=== PATIENT | female | born 1950 | race Caucasian/White ===

== ENCOUNTER → 2018-05-13 | Outpatient (CLI) | payer MEDICARE, OTHER ==
[2018-05-13 10:48] LABS: CHOLESTEROL 204 MG/DL (< 200); HDL CHOLESTEROL 65 MG/DL (40-60); TRIGLYCERIDES 109 MG/DL (<150); VLDL CHOLESTEROL 22 MG/DL (5-40)
[2018-05-13 12:44] LABS: BILIRUBIN,TOTAL 0.3 MG/DL (0.1-1.0); BUN/CREATININE RATIO 18; CALCIUM 9.4 MG/DL (8.5-10.1); CARBON DIOXIDE 22 MMOL/L (21-32); CHLORIDE 102 MMOL/L (98-107); CREATININE SERUM 0.79 MG/DL (0.60-1.30); GFR ESTIMATED > 60; GLUCOSE 95 MG/DL (70-105); POTASSIUM 4.3 MMOL/L (3.6-5.0); SODIUM 141 MMOL/L (135-145)
[2018-05-13 12:45] LABS: ALANINE AMINOTRANSFERASE 35 U/L (0-55); ALBUMIN 4.7 GM/DL (3.2-4.5); ALKALINE PHOSPHATASE 73 U/L (40-136); TOTAL PROTEIN 7.5 GM/DL (6.4-8.2)
== END ==
LOC: LAB FS 07:48
PROVIDERS: ATTEND Family Medicine
DX: E78.5 Hyperlipidemia, unspecified (principal); R73.9 Hyperglycemia, unspecified; R53.83 Other fatigue
CPT/HCPCS: 36415; 80053; 80061; 83036; 84443

== ENCOUNTER → 2019-11-03 | Outpatient (CLI) | payer MEDICARE ==
--- NOTE | 2019-11-03 12:49 | Diagnostic Imaging Report ---
EXAMINATION: Cervical spine INDICATION: Neck pain 4 views were obtained. There are no prior studies for comparison. The lateral view does show slight straightening of the cervical spine. This may be secondary to muscle spasm and/or positioning. There is narrowing of the disc spaces at C5-C6 and C6-C7 and there are small osteophytes along the ventral aspect of C5-C6 and C7. The other intervertebral spaces are fairly well-maintained. There is no fracture or acute bony abnormality evident. There is no sign of retropharyngeal edema. The lung apices are clear. IMPRESSION: 1. There is no evidence of acute bony abnormality. 2. There is degenerative disc and bone disease at C5-C6 and C6-C7. 3. If there is clinical concern regarding spinal stenosis or nerve root encroachment, then MRI would be recommended for further study. Dictated by: Dictated on workstation # [id number]
== END ==
LOC: RAD 09:57
PROVIDERS: ATTEND Family Medicine
DX: M50.322 Other cervical disc degeneration at C5-C6 level (principal); M50.323 Other cervical disc degeneration at C6-C7 level
CPT/HCPCS: 72040

== ENCOUNTER 2019-11-23 09:21 | Observation (INO) | payer MEDICARE ==
[2019-11-23] VITALS (8 sets, daily range): BP systolic 97–136; BP diastolic 63–81
[~2019-11-23] VITALS: Ht 162 cm; Wt 73.0 kg
[2019-11-23] MEDS ORDERED: NS IV 1000 ML 1,000 ML IV STA (09:27)
[2019-11-23 09:41] LABS: WHITE BLOOD COUNT 4.6 10^3/uL (4.3-11.0)
[2019-11-23 09:42] LABS: BASOPHILS % (AUTO) 1 % (0-10); EOSINOPHILS # (AUTO) 0.1 10^3/uL (0.0-0.3); EOSINOPHILS % (AUTO) 1 % (0-10); HEMATOCRIT 43 % (35-52); HEMOGLOBIN 14.4 G/DL (11.5-16.0); LYMPHOCYTES # (AUTO) 1.7 X 10^3 (1.0-4.0); LYMPHOCYTES % (AUTO) 37 % (12-44); MEAN CORPUSCULAR HEMOGLOBIN 30 PG (25-34); MEAN CORPUSCULAR HGB CONC 33 G/DL (32-36); MEAN CORPUSCULAR VOLUME 90 FL (80-99); MEAN PLATELET VOLUME 9.2 FL (7.4-10.4); MONOCYTES # (AUTO) 0.4 X 10^3 (0.0-1.0); MONOCYTES % (AUTO) 10 % (0-12); NEUTROPHILS # (AUTO) 2.3 X 10^3 (1.8-7.8); NEUTROPHILS % (AUTO) 51 % (42-75); PLATELET COUNT 268 10^3/uL (130-400)
[2019-11-23] MEDS ORDERED: ASPIRIN 81 MG CHEW (CHILDREN'S ASA) PO ONE (09:45)
--- NOTE | 2019-11-23 09:55 | Diagnostic Imaging Report ---
INDICATION: Chest pain. Single AP view of the chest is obtained. COMPARISON: No previous study is available for comparison at this time. FINDINGS: Heart size and pulmonary vasculature are within normal limits, and the lungs are clear, bilaterally. There is mild left convexity curvature of the thoracic spine. IMPRESSION: Unremarkable chest. Dictated by: Dictated on workstation # [id number]
[2019-11-23 10:01] LABS: INR 0.9 (0.8-1.4); PROTHROMBIN TIME PATIENT 12.6 SEC (12.2-14.7)
--- NOTE | 2019-11-23 10:05 | ED Chest Pain ---
General Chief Complaint: Chest Pain Stated Complaint: COUGH; SOB; CHEST PAIN Nursing Triage Note: STARTED ON THURSDAY, LEFT SIDE RADIATING TO RIGHT SIDE. NECK STIFFNESS. PT REPORTS IT FEELS LIKE A PRESSURE. Nursing Sepsis Screen: No Definite Risk Source: patient History of Present Illness Date Seen by Provider: Nov 23, 2019 Time Seen by Provider: 09:27 Initial Comments 69-year-old female presenting with complaints of intermittent left-sided chest pain since Thursday. She states that she's had some discomfort in her left jaw and left hand as well as her left foot. She has had a mild cough. She felt like the pain was worse on Thursday. However this morning she woke up with recurrent left- sided pain radiating to the right side of her back and chest. She had called her doctor in [place] and was told to come to the emergency department. She denies any nausea or vomiting. She has no sweating or shortness of breath. The pain started when she woke up this morning and is been mostly there all morning. Nothing seems to make it better or worse. She had something similar several months ago and was diagnosed with pneumonia but had side effects from the antibiotics. She states that she does have allergies and takes medicine for that. Allergies and Home Medications Allergies Coded Allergies: No Known Drug Allergies (Unverified , 11/23/19) Home Medications Calcium Carbonate 1 Gm Powder, 600 MG PO 1600, (Reported) TAKES WITH WATER AFTER HER SNACK Diphenhydramine HCl 25 Mg Capsule, 50 MG PO HS PRN for SLEEP, (Reported) TAKES 2 (25MG) CAPSULES Fexofenadine HCl 180 Mg Tablet, 180 MG PO DAILY, (Reported) Fluticasone Propionate 9.9 Ml [place].susp, 1 SPRAY NS BID PRN for CONGESTION, (Reported) 1 SPRAY EACH NARE DAILY Lactobacillus Rhamnosus GG 1 Each Capsule, 1 EACH PO DAILY, (Reported) Multivitamin 1 Each Tablet, 2 EACH PO 1600, (Reported) Naphazoline HCl/Pheniramine 15 Ml Drops, 1 DROP OU DAILY PRN for ALLERGIES, (Reported) [place]-3/Dha/Epa/Fish Oil 1 Each Capsule, 1 EACH PO 1600, (Reported) Omeprazole 20 Mg Capsule.dr, 20 MG PO DAILY, (Reported) Patient Home Medication List Home Medication List Reviewed: Yes Review of Systems Review of Systems Constitutional: No chills, No dizziness, No fever EENTM: No Symptoms Reported Respiratory: Cough (mild) Cardiovascular: See HPI Gastrointestinal: Denies Nausea, Denies Vomiting Genitourinary: No Symptoms Reported Musculoskeletal: no symptoms reported Skin: no symptoms reported Psychiatric/Neurological: No Symptoms Reported Endocrine: No Symptoms Reported Past Jhlsfov-Nrvyqb-Rktjhj Hx Past Med/Social Hx: Reviewed Nursing Past Med/Soc Hx Patient Social History Alcohol Use: Denies Use Recreational Drug Use: No Smoking Status: Never a Smoker 2nd Hand Smoke Exposure: Yes Recent Foreign Travel: No Contact w/Someone Who Travel: No Recent Infectious Disease Expo: No Recent Hopitalizations: No Physical Abuse: No Sexual Abuse: No Mistreated: No Fear: No Seasonal Allergies Seasonal Allergies: Yes Past Medical History Surgeries: Yes (BENIGN BREAST, CERVICAL SURGERY) Gallbladder Respiratory: No Cardiac: No Neurological: No Genitourinary: No Gastrointestinal: No Musculoskeletal: No Endocrine: No HEENT: No Cancer: No Psychosocial: No Integumentary: No Blood Disorders: No Physical Exam Vital Signs Vital Signs - First Documented 11/23/19 09:22 Temp 37.0 Pulse 71 Resp 18 B/P (MAP) 161/64 (96) Pulse Ox 98 O2 Delivery Room Air Capillary Refill : Less Than 3 Seconds Height, Weight, BMI Height: '" Weight: lbs. oz. kg; 28.00 BMI Method: General Appearance: No Apparent Distress, WD/WN HEENT: PERRL/EOMI, Pharynx Normal Neck: Full Range of Motion, Normal Inspection, Non Tender, Supple Respiratory: Chest Non Tender, Lungs Clear, Normal Breath Sounds, No Accessory Muscle Use, No Respiratory Distress Cardiovascular: Regular Rate, Rhythm, Normal Peripheral Pulses Gastrointestinal: Normal Bowel Sounds, Non Tender, Soft Extremity: Normal Capillary Refill, Normal Range of Motion, Non Tender, No Pedal Edema Neurologic/Psychiatric: Alert, Oriented x3, No Motor/Sensory Deficits Skin: Normal Color, Warm/Dry Progress/Results/Core Measures Results/Orders Lab Results Laboratory Tests Test 11/23/19 09:33 Range/Units White Blood Count 4.6 4.3-11.0 10^3/uL Red Blood Count 4.83 4.35-5.85 10^6/uL Hemoglobin 14.4 11.5-16.0 G/DL Hematocrit 43 35-52 % Mean Corpuscular Volume 90 80-99 FL Mean Corpuscular Hemoglobin 30 25-34 PG Mean Corpuscular Hemoglobin Concent 33 32-36 G/DL Red Cell Distribution Width 12.6 10.0-14.5 % Platelet Count 268 130-400 10^3/uL Mean Platelet Volume 9.2 7.4-10.4 FL Neutrophils (%) (Auto) 51 42-75 % Lymphocytes (%) (Auto) 37 12-44 % Monocytes (%) (Auto) 10 0-12 % Eosinophils (%) (Auto) 1 0-10 % Basophils (%) (Auto) 1 0-10 % Neutrophils # (Auto) 2.3 1.8-7.8 X 10^3 Lymphocytes # (Auto) 1.7 1.0-4.0 X 10^3 Monocytes # (Auto) 0.4 0.0-1.0 X 10^3 Eosinophils # (Auto) 0.1 0.0-0.3 10^3/uL Basophils # (Auto) 0.0 0.0-0.1 10^3/uL Prothrombin Time 12.6 12.2-14.7 SEC INR Comment 0.9 0.8-1.4 Activated Partial Thromboplast Time 25 24-35 SEC Sodium Level 140 135-145 MMOL/L Potassium Level 4.0 3.6-5.0 MMOL/L Chloride Level 103 98-107 MMOL/L Carbon Dioxide Level 24 21-32 MMOL/L Anion Gap 13 5-14 MMOL/L Blood Urea Nitrogen 13 7-18 MG/DL Creatinine 0.86 0.60-1.30 MG/DL Estimat Glomerular Filtration Rate > 60 BUN/Creatinine Ratio 15 Glucose Level 111 H 70-105 MG/DL Calcium Level 9.4 8.5-10.1 MG/DL Corrected Calcium 9.1 8.5-10.1 MG/DL Magnesium Level 2.1 1.6-2.4 MG/DL Total Bilirubin 0.3 0.1-1.0 MG/DL Aspartate Amino Transf (AST/SGOT) 21 5-34 U/L Alanine Aminotransferase (ALT/SGPT) 18 0-55 U/L Alkaline Phosphatase 76 40-136 U/L Troponin I < 0.30 <0.30 NG/ML Pro-B-Type Natriuretic Peptide 135.5 H <75.0 PG/ML Total Protein 7.2 6.4-8.2 GM/DL Albumin 4.4 3.2-4.5 GM/DL Lipase 22 8-78 U/L My Orders Orders - MONET GUERIN MD Comprehensive Metabolic Panel (11/23/19 09:27) Ed Iv/Invasive Line Start (11/23/19 09:27) Cbc With Automated Diff (11/23/19 09:27) Protime With Inr (11/23/19 09:27) Partial Thromboplastin Time (11/23/19 09:27) Ns Iv 1000 Ml (Sodium Chloride 0.9%) (11/23/19 09:27) Magnesium (11/23/19 09:40) Chest 1 View Ap/Pa Only (11/23/19 09:40) Ekg Tracing (11/23/19 09:40) O2 (11/23/19 09:40) Monitor-Rhythm Ecg Trace Only (11/23/19 09:40) Aspirin Chewable Tablet (Baby Aspirin Ch (11/23/19 09:45) Lipase (11/23/19 09:40) Troponin I Fs (11/23/19 09:40) Probnp Fs (11/23/19 09:40) Nitroglycerin Ointment (Nitrobid Ointme (11/23/19 11:15) Medications Given in ED Current Medications Medications Dose Ordered Sig/Rima Route Start Time Stop Time Status Last Admin Dose Admin Aspirin 324 mg ONCE ONCE PO 11/23/19 09:45 11/23/19 09:46 DC 11/23/19 09:57 324 MG Nitroglycerin 0.5 inch ONCE ONCE TOP 11/23/19 11:15 11/23/19 11:16 DC 11/23/19 11:23 0.5 INCH Vital Signs/I&O 11/23/19 11/23/19 09:22 12:00 Temp 37.0 36.0 Pulse 71 77 Resp 18 16 B/P (MAP) 161/64 (96) 121/65 Pulse Ox 98 96 O2 Delivery Room Air Room Air Blood Pressure Mean: 96 Progress Progress Note #1: Progress Note Check labs as well as electrocardiogram and chest x-ray. Give 324 mg of aspirin while waiting on testing to come back. Progress Note #2: Progress Note Labs were negative for acute STEMI. She did have mild elevation of her BNP. Her chest x-ray was clear. Patient reported intermittent aching in her left neck and jaw. She also was having some pain in her back. Will add on nitroglycerin paste to see if that might help with her symptoms. Call placed to Dr. BEE her primary care provider to see if she would want to manage this as an outpatient or have her admitted for stress test and cardiology consult. When discussed with Dr. BEE she agreed to admit the patient and consult cardiology. Initial ECG Impression Date: Nov 23, 2019 Initial ECG Impression Time: 09:25 Initial ECG Rate: 64 Initial ECG Rhythm: Normal Sinus Initial ECG Comparisson: No Previous ECG Available Comment Normal sinus rhythm with heart rate 64 bpm. ME interval 190 ms. There is a left axis deviation. QT interval 397 ms with a QTc interval 410 ms. There is no [address] elevation. There is no prior tracing available for comparison. Diagnostic Imaging Diagonstic Imaging: Xray Plain Films/CT/US/NM/MRI: chest Comments NAME: MAYRA ALBRECHT [facility] REC#: [id number] PT STATUS: REG ER : 1950 PHYSICIAN: MONET GUERIN MD ADMIT DATE: 11/23/19/ER FS Draft Date of Exam:11/23/19 CHEST 1 VIEW AP/PA ONLY INDICATION: Chest pain. Single AP view of the chest is obtained. COMPARISON: No previous study is available for comparison at this time. FINDINGS: Heart size and pulmonary vasculature are within normal limits, and the lungs are clear, bilaterally. There is mild left convexity curvature of the thoracic spine. IMPRESSION: Unremarkable chest. Dictated on workstation # [id number] Dict: 11/23/19 0948 Trans: 11/23/19 0955 [id number] Interpreted by: CHASITY WISEMAN MD Electronically signed by: Departure Communication (Admissions) Time/Spoke to Admitting Phy: 10:44 d/w Dr. Bee and she agreed to admit for cardiac rule out. Impression Primary Impression: Chest pain Qualified Codes: R07.9 - Chest pain, unspecified Disposition: ADMITTED INPATIENT Condition: Stable Admissions Decision to Admit Reason: Admit from ER (General) Decision to Admit/Date: Nov 23, 2019 Time/Decision to Admit Time: 10:44 Departure-Patient Inst. Referrals: CRISTINA BEE DO (PCP/Family) Primary Care Physician MONET GUERIN MD Nov 23, 2019 10:05
[2019-11-23 10:24] LABS: ALANINE AMINOTRANSFERASE 18 U/L (0-55); ALBUMIN 4.4 GM/DL (3.2-4.5); ALKALINE PHOSPHATASE 76 U/L (40-136); BILIRUBIN,TOTAL 0.3 MG/DL (0.1-1.0); BUN/CREATININE RATIO 15; CALCIUM 9.4 MG/DL (8.5-10.1); CARBON DIOXIDE 24 MMOL/L (21-32); CHLORIDE 103 MMOL/L (98-107); CREATININE SERUM 0.86 MG/DL (0.60-1.30); GFR ESTIMATED > 60; GLUCOSE 111 MG/DL (70-105); SODIUM 140 MMOL/L (135-145); TOTAL PROTEIN 7.2 GM/DL (6.4-8.2)
[2019-11-23 10:25] LABS: MAGNESIUM 2.1 MG/DL (1.6-2.4)
[2019-11-23] MEDS ORDERED: NITROGLYCERIN 2% OINT 1 GM UNIT DOSE PACKET TOP ONE (11:15)
--- NOTE | 2019-11-23 13:30 | NUR ---
MAYRA ALBRECHT admitted to room 511-1, with an admitting diagnosis of CHEST PAIN, on 11/23/19 from DIRECT ADMIT via STRETCHER, accompanied by EMS STAFF. MAYRA ALBRECHT introduced to surroundings, call light, bed controls, phone, TV, temperature control, lights, meal times, smoking policy, visitor policy, side rail policy, bathrooms and showers. Patient Rights given to patient in the handbook. MAYRA ALBRECHT verbalizes understanding that [facility] is not responsible for the loss or damage to any personal effects or valuables that are kept in the patients possession during their hospitalization.
[2019-11-23] MEDS ORDERED: NS IV 1000 ML 1,000 ML ONE (13:34)
[2019-11-23] MEDS ORDERED: morphine INJ 4 MG/ML 1 ML (VIAL/SYRINGE) IV PRN (14:00)
[2019-11-23] MEDS ORDERED: ONDANSETRON 4 MG/2 ML (SDV) Z0FRAN IVP PRN (14:00)
[2019-11-23] MEDS: NS IV 1000 ML 1,000 ML IV SCH (14:07)
[2019-11-23] MEDS ORDERED: LACT1CAP39 PO (15:42)
[2019-11-23] MEDS ORDERED: OMEG-33 PO (15:42)
[2019-11-23] MEDS ORDERED: FEXO180T84 PO (15:42)
[2019-11-23] MEDS ORDERED: OMEP20CA18 PO (15:42)
[2019-11-23] MEDS ORDERED: MULT-1136 PO (15:42)
[2019-11-23] MEDS ORDERED: CALC1POW PO (15:42)
[2019-11-23] MEDS ORDERED: NAPH15DR14 OU (15:42)
[2019-11-23] MEDS ORDERED: FLUT15.812 NSEACH (15:42)
[2019-11-23] MEDS ORDERED: DIPH25CA79 PO (15:42)
[2019-11-23] MEDS ORDERED: FLUT9.9S NS (15:42)
--- NOTE | 2019-11-23 15:45 | NUR ---
I SPOKE WITH THE PATIENT AND WENT THROUGH THE EXTERNAL MED HISTORY TO COMPLETE THIS MED REC. OTC: FLONASE WARD PROBIOTIC CALCIUM CARBONATE FISH OIL BENADRYL ALLERGY RELIEF EYE DROPS
--- NOTE | 2019-11-23 16:41 | NUR ---
DR. COSBY AT PT BEDSIDE FOR CONSULT ASSESSMENT.
[2019-11-23] MEDS ORDERED: ENOXAPARIN 40 MG/0.4 ML (LOVENOX) SYR SC SCH (16:45)
--- NOTE | 2019-11-23 17:09 | Consultation-Cardiology ---
HPI-Cardiology Cardiology Consultation Date of Consultation 11/23/19 Date of Admission Time Seen by Provider: 17:07 Indication: chest pain HPI 69-year-old lady with history of degenerative disc disease in her neck and neck pain. Has been having mild congestion in her nose and throat, complaining of reflux disease. Reported for the past 3 days episode of chest pain described it as dull ache in the left upper side of her chest, back pain between her shoulders. No shortness of breath. No syncope or near syncopal episodes. No claudications. Has been compliant with her medications otherwise. Home Medications & Allergies Allergies: Coded Allergies: cantaloupe (Unverified Allergy, Intermediate, MOUTH TINGLING, 11/23/19) pineapple (Unverified Allergy, Intermediate, TINGLING MOUTH, 11/23/19) strawberry (Unverified Allergy, Intermediate, TINGLING MOUTH, 11/23/19) watermelon (Unverified Allergy, Intermediate, TINGLING MOUTH, 11/23/19) cefdinir (Unverified Allergy, Mild, SEVERE CHEST PAIN, 11/23/19) latex (Unverified Allergy, Unknown, 11/23/19) PT ALLERGIC TO EXOTIC FRUITS AND UNSURE IF SHE IS ALLERGIC TO LATEX oseltamivir (Unverified Allergy, Unknown, SEVERE CHEST PAIN, 11/23/19) Home Medication List Reviewed: Yes QVF-Lpjccp-Ssunri Hx Patient Social History Marital Status: Employed/Student: employed Alcohol Use: Denies Use Recreational Drug Use: No Smoking Status: Never a Smoker 2nd Hand Smoke Exposure: Yes Recent Foreign Travel: No Recent Infectious Disease Expo: No Recent Hopitalizations: No Past Medical History Discussed below Family Medical History Family History: Asthma 19 FATHER Basal cell carcinoma 19 FATHER G8 SISTER FH: COPD (chronic obstructive pulmonary disease) 19 FATHER Glaucoma 19 FATHER Review of Systems-General Review of Systems Constitutional: see HPI; No chills, No dizziness, No fever EENTM: see HPI, nose congestion Respiratory: see HPI; No cough, No dyspnea on exertion, No hemoptysis, No orthopnea, No phlegm, No short of breath, No stridor, No wheezing, No other Cardiovascular: see HPI, chest pain; No edema, No Hx of Intervention, No palpitations, No syncope, No vascular heart diseas, No other Gastrointestinal: no symptoms reported, see HPI Genitourinary: no symptoms reported, see HPI Musculoskeletal: see HPI, back pain Skin: no symptoms reported, see HPI Psychiatric/Neurological: No Symptoms Reported, See HPI Reviewed Test Results Reviewed Test Results Lab Laboratory Tests Test 11/23/19 09:33 11/23/19 13:56 Range/Units White Blood Count 4.6 4.3-11.0 10^3/uL Red Blood Count 4.83 4.35-5.85 10^6/uL Hemoglobin 14.4 11.5-16.0 G/DL Hematocrit 43 35-52 % Mean Corpuscular Volume 90 80-99 FL Mean Corpuscular Hemoglobin 30 25-34 PG Mean Corpuscular Hemoglobin Concent 33 32-36 G/DL Red Cell Distribution Width 12.6 10.0-14.5 % Platelet Count 268 130-400 10^3/uL Mean Platelet Volume 9.2 7.4-10.4 FL Neutrophils (%) (Auto) 51 42-75 % Lymphocytes (%) (Auto) 37 12-44 % Monocytes (%) (Auto) 10 0-12 % Eosinophils (%) (Auto) 1 0-10 % Basophils (%) (Auto) 1 0-10 % Neutrophils # (Auto) 2.3 1.8-7.8 X 10^3 Lymphocytes # (Auto) 1.7 1.0-4.0 X 10^3 Monocytes # (Auto) 0.4 0.0-1.0 X 10^3 Eosinophils # (Auto) 0.1 0.0-0.3 10^3/uL Basophils # (Auto) 0.0 0.0-0.1 10^3/uL Prothrombin Time 12.6 12.2-14.7 SEC INR Comment 0.9 0.8-1.4 Activated Partial Thromboplast Time 25 24-35 SEC Sodium Level 140 135-145 MMOL/L Potassium Level 4.0 3.6-5.0 MMOL/L Chloride Level 103 98-107 MMOL/L Carbon Dioxide Level 24 21-32 MMOL/L Anion Gap 13 5-14 MMOL/L Blood Urea Nitrogen 13 7-18 MG/DL Creatinine 0.86 0.60-1.30 MG/DL Estimat Glomerular Filtration Rate > 60 BUN/Creatinine Ratio 15 Glucose Level 111 H 70-105 MG/DL Calcium Level 9.4 8.5-10.1 MG/DL Corrected Calcium 9.1 8.5-10.1 MG/DL Magnesium Level 2.1 1.6-2.4 MG/DL Total Bilirubin 0.3 0.1-1.0 MG/DL Aspartate Amino Transf (AST/SGOT) 21 5-34 U/L Alanine Aminotransferase (ALT/SGPT) 18 0-55 U/L Alkaline Phosphatase 76 40-136 U/L Troponin I < 0.30 < 0.028 <0.028 NG/ML Pro-B-Type Natriuretic Peptide 135.5 H <75.0 PG/ML Total Protein 7.2 6.4-8.2 GM/DL Albumin 4.4 3.2-4.5 GM/DL Lipase 22 8-78 U/L Physical Exam Physical Exam Vital Signs Vital Signs - First Documented 11/23/19 09:22 Temp 37.0 Pulse 71 Resp 18 B/P (MAP) 161/64 (96) Pulse Ox 98 O2 Delivery Room Air Capillary Refill : Less Than 3 Seconds Height, Weight, BMI Height: '" Weight: lbs. oz. kg; 27.32 BMI Method: General Appearance: No Apparent Distress, WD/WN Eyes: Bilateral Eye Normal Inspection, Bilateral Eye PERRL, Bilateral Eye EOMI HEENT: PERRL/EOMI, Pharynx Normal Neck: Full Range of Motion, Normal Inspection, Non Tender, Supple Respiratory: Chest Non Tender, Lungs Clear, Normal Breath Sounds, No Accessory Muscle Use, No Respiratory Distress Cardiovascular: Regular Rate, Rhythm, Normal Peripheral Pulses Gastrointestinal: Normal Bowel Sounds, Non Tender, Soft Back: Normal Inspection, No CVA Tenderness, No Vertebral Tenderness Extremity: Normal Capillary Refill, Normal Range of Motion, Non Tender, No Pedal Edema Neurologic/Psychiatric: Alert, Oriented x3, No Motor/Sensory Deficits Skin: Normal Color, Warm/Dry Lymphatic: No Adenopathy A/P-Cardiology Assessment/Plan Chest pain nonspecific etiology, atypical in presentation, no acute EKG changes, cardiac enzymes are negative. Discussed with the patient the management plan recommended monitoring overnight, repeating troponin in the morning and planning to proceed with stress test in the morning. Neck pain, history of degenerative disc disease in her C-spine. Having bilateral shoulder pain. Nasal congestion, reporting improvement Gastroesophageal reflux disease, started on Protonix Clinical Quality Measures AMI/AHF: ASA po Prior to arrival: No DVT/VTE Risk/Contraindication: Risk Factor Score Per Nursin RFS Level Per Nursing on Admit: 2=Moderate BIBIANA COSBY MD Nov 23, 2019 17:09
[2019-11-23] MEDS ORDERED: REGADENOSON 0.4 MG/5 ML SYR (LEXISCAN) IV ONE (17:15)
[2019-11-23] MEDS ORDERED: PANTOPRAZOLE 40 MG (PROTONIX) TAB PO ONE (17:42)
[2019-11-23] MEDS: PANTOPRAZOLE 40 MG (PROTONIX) TAB PO SCH (17:46)
--- NOTE | 2019-11-23 20:07 | History & Physical ---
History of Present Illness History of Present Illness Reason for visit/HPI This is a 69 year old female who presented to the emergency room at [facility] with substernal chest pain radiating through to her back as well as to her left neck and jaw. Her EKG and cardiac enzymes were negative but do to her ongoing chest pain it was felt she should be transferred to [facility] for cardiac workup and rule out. She has a known history of reflux an d was having burning up into her esophagus. She also has cervical and thoracic degenerative disc disease and has been having back and right rib pain recently. Her pain is currently resolved after a nitropatch was placed. Date of Admission Nov 23, 2019 at 13:22 Date Seen by a Provider: Nov 23, 2019 Time Seen by a Provider: 20:05 I consulted on this patient on 11/23/19 20:01 Attending Physician Cristina Bee DO Admitting Physician Cristina Bee DO Consult Allergies and Home Medications Allergies Coded Allergies: cantaloupe (Unverified Allergy, Intermediate, MOUTH TINGLING, 11/23/19) pineapple (Unverified Allergy, Intermediate, TINGLING MOUTH, 11/23/19) strawberry (Unverified Allergy, Intermediate, TINGLING MOUTH, 11/23/19) watermelon (Unverified Allergy, Intermediate, TINGLING MOUTH, 11/23/19) cefdinir (Unverified Allergy, Mild, SEVERE CHEST PAIN, 11/23/19) latex (Unverified Allergy, Unknown, 11/23/19) PT ALLERGIC TO EXOTIC FRUITS AND UNSURE IF SHE IS ALLERGIC TO LATEX oseltamivir (Unverified Allergy, Unknown, SEVERE CHEST PAIN, 11/23/19) Home Medications Calcium Carbonate 1 Gm Powder, 600 MG PO 1600, (Reported) TAKES WITH WATER AFTER HER SNACK Diphenhydramine HCl 25 Mg Capsule, 50 MG PO HS PRN for SLEEP, (Reported) TAKES 2 (25MG) CAPSULES Fexofenadine HCl 180 Mg Tablet, 180 MG PO DAILY, (Reported) Fluticasone Propionate 9.9 Ml [place].susp, 1 SPRAY NS BID PRN for CONGESTION, (Reported) 1 SPRAY EACH NARE DAILY Lactobacillus Rhamnosus GG 1 Each Capsule, 1 EACH PO DAILY, (Reported) Multivitamin 1 Each Tablet, 2 EACH PO 1600, (Reported) Naphazoline HCl/Pheniramine 15 Ml Drops, 1 DROP OU DAILY PRN for ALLERGIES, (Reported) Lanse-3/Dha/Epa/Fish Oil 1 Each Capsule, 1 EACH PO 1600, (Reported) Omeprazole 20 Mg Capsule.dr, 20 MG PO DAILY, (Reported) Patient Home Medication List Home Medication List Reviewed: Yes Past Muuwhat-Gxnebj-Ihpqhm Hx Past Med/Social Hx: Reviewed Nursing Past Med/Soc Hx Patient Social History Marrital Status: Employed/Student: employed Alcohol Use: Denies Use Recreational Drug Use: No Smoking Status: Never a Smoker 2nd Hand Smoke Exposure: Yes Recent Foreign Travel: No Contact w/other who traveled: No Recent Hopitalizations: No Recent Infectious Disease Expo: No Seasonal Allergies Seasonal Allergies: Yes Past Medical History Surgeries: Gallbladder History of Blood Disorders: No Family History Asthma 19 FATHER Basal cell carcinoma 19 FATHER G8 SISTER FH: COPD (chronic obstructive pulmonary disease) 19 FATHER Glaucoma 19 FATHER Review of Systems Constitutional: weakness EENTM: nose congestion Respiratory: No no symptoms reported, No see HPI, No cough, No dyspnea on exertion, No hemoptysis, No orthopnea, No phlegm, No short of breath, No stridor, No wheezing, No other Cardiovascular: chest pain Gastrointestinal: heartburn Genitourinary: No no symptoms reported, No see HPI, No decreased output, No discharge, No dysuria, No frequency, No hematuria, No hesitancy, No incontinence, No nocturia, No pain, No other Musculoskeletal: back pain Skin: No no symptoms reported, No see HPI, No change in color, No change in hair/nails, No dryness, No hx of skin cancer, No lesions, No lumps, No pruritus, No rash, No other Psychiatric/Neurological: Denies No Symptoms Reported, Denies See HPI, Denies Anxiety, Denies Depressed, Denies Emotional Problems, Denies Headache, Denies Numbness, Denies Paresthesia, Denies Pre-Existing Deficit, Denies Seizure, Denies Tingling, Denies Tremors, Denies Weakness, Denies Other Physical Exam Vital Signs Vital Signs - First Documented 11/23/19 09:22 Temp 37.0 Pulse 71 Resp 18 B/P (MAP) 161/64 (96) Pulse Ox 98 O2 Delivery Room Air Capillary Refill : Less Than 3 Seconds Height, Weight, BMI Height: '" Weight: lbs. oz. kg; 27.32 BMI Method: General Appearance: No Apparent Distress HEENT: Normal ENT Inspection Neck: Supple Respiratory: Lungs Clear Cardiovascular: Regular Rate, Rhythm Gastrointestinal: Normal Bowel Sounds, Non Tender, Soft Rectal: Deferred Back: No CVA Tenderness, Other (costochondral tenderness but not the same pain she has been experiencing) Extremity: Non Tender, No Calf Tenderness, No Pedal Edema Neurologic/Psychiatric: Alert, Oriented x3 Skin: Warm/Dry Comments Laboratory Tests 11/23/19 09:33: White Blood Count 4.6, Red Blood Count 4.83, Hemoglobin 14.4, Hematocrit 43, Mean Corpuscular Volume 90, Mean Corpuscular Hemoglobin 30, Mean Corpuscular Hemoglobin Concent 33, Red Cell Distribution Width 12.6, Platelet Count 268, Mean Platelet Volume 9.2, Neutrophils (%) (Auto) 51, Lymphocytes (%) (Auto) 37, Monocytes (%) (Auto) 10, Eosinophils (%) (Auto) 1, Basophils (%) (Auto) 1, Neutrophils # (Auto) 2.3, Lymphocytes # (Auto) 1.7, Monocytes # (Auto) 0.4, Eosinophils # (Auto) 0.1, Basophils # (Auto) 0.0, Prothrombin Time 12.6, INR Comment 0.9, Activated Partial Thromboplast Time 25, Sodium Level 140, Potassium Level 4.0, Chloride Level 103, Carbon Dioxide Level 24, Anion Gap 13, Blood Urea Nitrogen 13, Creatinine 0.86, Estimat Glomerular Filtration Rate > 60, BUN/Creatinine Ratio 15, Glucose Level 111H, Calcium Level 9.4, Corrected Calcium 9.1, Magnesium Level 2.1, Total Bilirubin 0.3, Aspartate Amino Transf (AST/SGOT) 21, Alanine Aminotransferase (ALT/SGPT) 18, Alkaline Phosphatase 76, Troponin I < 0.30, Pro-B-Type Natriuretic Peptide 135.5H, Total Protein 7.2, Albumin 4.4, Lipase 22 11/23/19 13:56: Troponin I < 0.028 Assessment/Plan Assessment and Plan 1. Chest Pain--uncertain etiology, monitor on telemetry, repeat cardiac enzymes, check 2-D ECHO, stress test tomorrow 2. History of GERD--started on protonix 3. Cervical/Thoracic back pain--discussed PT as outpatient\\ 4. Allergic Rhinitis--resume home yisel Admission Diagnosis Admission Status: Observation Clinical Quality Measures AMI/AHF: ASA po Prior to arrival: No DVT/VTE Risk/Contraindication: Risk Factor Score Per Nursin RFS Level Per Nursing on Admit: 2=Moderate CRISTINA BEE DO Nov 23, 2019 20:07
[2019-11-23] MEDS ORDERED: FLUTICASONE NASAL SPRAY (FLONASE) 16 GM BTL NS PRN (21:00)
[2019-11-24] MEDS: NS IV 1000 ML 1,000 ML IV SCH (03:18)
[2019-11-24 04:31] VITALS: BP 133/72
[2019-11-24] MEDS ORDERED: CATHETER FLUSH 10 ML SYR IV PRN (07:00)
--- NOTE | 2019-11-24 07:06 | NUR ---
Nuclear med to take pt down for procedure at this time.
[2019-11-24] MEDS ORDERED: REGADENOSON 0.4 MG/5 ML SYR (LEXISCAN) IV ONE (07:46)
--- NOTE | 2019-11-24 08:30 | Cardiology Progress Note ---
Subjective Date Seen by Provider: Nov 24, 2019 Time Seen by Provider: 08:30 Subjective/Events-last exam Patient is laying down in bed, had another episode of chest pain early this morning, currently she is pain-free Review of Systems General: No Chills, No Night Sweats, No Fatigue, No Malaise, No Appetite, No Other HEENT: No Head Aches, No Visual Changes, No Eye Pain, No Ear Pain, No Dysphasia, No Sinus Congestion, No Post Nasal Drip, No Sore Throat, No Other Pulmonary: No Dyspnea, No Cough, No Pleuritic Chest Pain, No Other Cardiovascular: Chest Pain; No: Palpitations, Orthopnea, Paroxysmal Noc. Dyspnea, Edema, Lt Headedness, Other Objective-Cardiology Exam Last Set of Vital Signs Vital Signs 11/24/19 04:31 Temp 36.6 Pulse 55 Resp 19 B/P (MAP) 133/72 (92) Pulse Ox 97 O2 Delivery Room Air Capillary Refill : Less Than 3 Seconds I&O Intake and Output 11/23/19 23:59 Intake Total 1575 ml Output Total 1450 ml Balance 125 ml Intake Oral 1575 ml Output Urine Total 1450 ml Daily Weight Change No No General: Alert, Oriented X3, Cooperative HEENT: Atraumatic, PERRLA Neck: Supple, No JVD, No Thyromegaly Lungs: Clear to Auscultation, Normal Air Movement Heart: Regular Rate, Normal S1, Normal S2, No Murmurs Abdomen: Normal Bowel Sounds, Soft, No Tenderness, No Hepatosplenomegaly, No Masses Extremities: No Clubbing, No Cyanosis, No Edema, Normal Pulses, No Tenderness/Swelling Skin: No Rashes, No Breakdown, No Significant Lesion Neuro: Normal Gait, Normal Speech, Strength at 5/5 X4 Ext, Normal Tone, Sensation Intact Psych/Mental Status: Mental Status NL, Mood NL Results Lab Laboratory Tests 11/23/19 09:33 A/P-Cardiology Assessment/Plan Chest pain nonspecific etiology, atypical in presentation, no acute EKG changes, cardiac enzymes are negative. Planning to proceed with stress test this morning Neck pain, history of degenerative disc disease in her C-spine. Having bilateral shoulder pain. Nasal congestion, reporting improvement Gastroesophageal reflux disease, started on Protonix Clinical Quality Measures AMI/AHF: ASA po Prior to arrival: No DVT/VTE Risk/Contraindication: Risk Factor Score Per Nursin RFS Level Per Nursing on Admit: 2=Moderate BIBIANA COSBY MD Nov 24, 2019 8:30 am
[2019-11-24] MEDS: PANTOPRAZOLE 40 MG (PROTONIX) TAB PO SCH (09:00)
[2019-11-24] MEDS ORDERED: LACTOBACILLUS ACIDOPHILUS (PROBIOTIC) CAPSULE PO SCH (09:00)
[2019-11-24] MEDS ORDERED: ASPIRIN E.C. 81 MG (ECOTRIN) TAB PO SCH (09:00)
[2019-11-24] MEDS ORDERED: LORATADINE (CLARITIN) 10 MG TAB PO SCH (09:00)
--- NOTE | 2019-11-24 10:25 | Cardiology Stress Test Report ---
Stress Test Report Date of Procedure/Referring: Date of Procedure: Nov 24, 2019 PCP Mi Bee DO Admitting Physician Mi Bee DO Indications: Chest pain Baseline Blood Pressure: Blood Pressure Systolic: 133 Blood Pressure Diastolic: 72 Baseline Vitals Vital Signs Date Time Temp Pulse Resp B/P (MAP) Pulse Ox O2 Delivery O2 Flow Rate FiO2 11/23/19 09:22 37.0 71 18 161/64 (96) 98 Room Air Baseline EKG: Baseline EKG: normal sinus rhythm Summary After explaining the procedure to the patient, she signed a consent and then brought to the stress nuclear laboratory. Patient received 0.4 mg Lexiscan for stress test, ECG, heart rate and blood pressure were monitored continuously. Resting and stress dose of radio tracer were injected, imaging was acquired and reviewed in short axis, horizontal long axis and vertical long axis views. TID: 1.02 SSS: 1 SDS: 1 EF: 70 1. Patient tolerated Lexiscan well 2. No ischemia or infarction on SPECT images 3. Normal LV size, EF 70 percent BIBIANA COSBY MD Nov 24, 2019 10:25
[2019-11-24 11:52] VITALS: BP 130/81
--- NOTE | 2019-11-24 18:05 | Discharge Summary ---
Diagnosis/Chief Complaint Date of Admission Nov 23, 2019 at 13:22 Date of Discharge Nov 24, 2019 at 13:42 Discharge Date: Nov 24, 2019 Discharge Diagnosis 1. Chest Pain, noncardiac in etiology--likely esophageal spasm/GERD 2. Thoracic Back Pain 3. Allergic Rhinitis Reason Hospital Visit This is a 69 year old female who presented to the emergency room at [facility] with substernal chest pain radiating through to her back as well as to her left neck and jaw. Her EKG and cardiac enzymes were negative but do to her ongoing chest pain it was felt she should be transferred to [facility] for cardiac workup and rule out. She has a known history of reflux and was having burning up into her esophagus. She also has cervical and thoracic degenerative disc disease and has been having back and right rib pain recently. Her pain is currently resolved after a nitropatch was placed. Discharge Summary Hospital Course Was the Problem List Reviewed?: Yes Hospital Course This is a 69 year old female who presented to the emergency room at [facility] with substernal chest pain radiating through to her back as well as to her left neck and jaw. Her EKG and cardiac enzymes were negative but do to her ongoing chest pain it was felt she should be transferred to [facility] for cardiac workup and rule out. She has a known history of reflux and was having burning up into her esophagus. She also has cervical and thoracic degenerative disc disease and has been having back and right rib pain recently. Her pain resolved after a nitropatch was placed and she received IV pantoprazole. Her repeat cardiac enzymes were negative. She remained in a normal sinus rhythm. She underwent and echocardiogram and lexiscan stress test which showed no evidence of ischemia so it was felt that her chest pain was likely noncardiac in etiology. I discussed with her that esophageal spasm and reflux were the likely etiology. The patient is on omeprazole but she does not wish for the dose to be increased so we discussed more natural remedies like a GERD diet, water and baking soda, mildred, aloe vera juice, etc. We also discussed starting PT for her thoracic and cervical back pain which she plans on doing next week. She will fwup with Dr. Cooper in 2 weeks and with me in 4 weeks. Labs Laboratory Tests 11/23/19 09:33: Glucose Level 111H, Pro-B-Type Natriuretic Peptide 135.5H 11/23/19 13:56: Procedures None. Discharge Physical Examination Allergies: Coded Allergies: cantaloupe (Unverified Allergy, Intermediate, MOUTH TINGLING, 11/23/19) pineapple (Unverified Allergy, Intermediate, TINGLING MOUTH, 11/23/19) strawberry (Unverified Allergy, Intermediate, TINGLING MOUTH, 11/23/19) watermelon (Unverified Allergy, Intermediate, TINGLING MOUTH, 11/23/19) cefdinir (Unverified Allergy, Mild, SEVERE CHEST PAIN, 11/23/19) latex (Unverified Allergy, Unknown, 11/23/19) PT ALLERGIC TO EXOTIC FRUITS AND UNSURE IF SHE IS ALLERGIC TO LATEX oseltamivir (Unverified Allergy, Unknown, SEVERE CHEST PAIN, 11/23/19) Vitals & I&Os Vital Signs Date Time Temp Pulse Resp B/P (MAP) Pulse Ox O2 Delivery O2 Flow Rate FiO2 11/24/19 13:01 11/24/19 12:56 Room Air 11/24/19 11:52 36.5 64 18 97 General Appearance: Alert, Oriented X3, Cooperative, No Acute Distress Respiratory: Clear to Auscultation Cardiovascular: Regular Rate Abdominal: Normal Bowel Sounds, Soft, No Tenderness Skin: No Rashes Neuro: Normal Gait, Normal Speech Psych/Mental Status: Mental Status NL Discharge Home Medications Reviewed and agree with Discharge Medication list on patient's Discharge Instruction sheet Instructions to Patient/Family Please see electronic discharge instructions given to patient. Clinical Quality Measures AMI/AHF: ASA po Prior to arrival: No DVT/VTE Risk/Contraindication: Risk Factor Score Per Nursin RFS Level Per Nursing on Admit: 2=Moderate CRISTINA TOBAR DO Nov 24, 2019 18:05
== END 2019-11-24 13:42 | disposition home or self-care (01) ==
LOC: EDUNIT# 09:21 → ER FS 09:22 → CSD 13:22
PROVIDERS: ADMIT Family Medicine; ATTEND Family Medicine
DX: R07.2 Precordial pain (principal); M54.6 Pain in thoracic spine; J30.9 Allergic rhinitis, unspecified; Z79.899 Other long term (current) drug therapy; Z91.018 Allergy to other foods; Z91.040 Latex allergy status
CPT/HCPCS: 36415; 71045; 78452; 80053; 83690; 83735; 83880; 84484; 85025; 85610; 85730; 93005; 93017; 93041; 93306

== ENCOUNTER → 2020-03-12 | Outpatient (CLI) | payer MEDICARE, OTHER ==
[~2020-03-12] MED LIST: CALC1POW PO; DIPH25CA79 PO; FEXO180T84 PO; FLUT15.812 NSEACH; FLUT9.9S NS; LACT1CAP39 PO; MULT-1136 PO; NAPH15DR14 OU; OMEG-33 PO; OMEP20CA18 PO
--- NOTE | 2020-03-12 14:39 | Diagnostic Imaging Report ---
INDICATION: Chronic back pain. COMPARISON: None FINDINGS: Evaluation of static alignment shows mild levoscoliotic deformity of the lower lumbar spine epicentered at the T10 level. AP static alignment is preserved. There is no significant [place] or retrolisthesis. There is no evidence of jumped facets. Vertebral body heights are maintained. There is no acute fracture. There are moderate multilevel degenerative changes consistent with intervertebral disc height loss with endplate sclerotic changes and osteophyte formations. Included portions of the lungs are clear. IMPRESSION: 1. No acute fracture or dislocation of the thoracic spine. 2. Moderate multilevel degenerative changes. Dictated by: Dictated on workstation # [id number]
== END ==
LOC: RAD 13:45
PROVIDERS: ATTEND Family Medicine
DX: M47.814 Spondylosis without myelopathy or radiculopathy, thoracic region (principal)
CPT/HCPCS: 72072

== ENCOUNTER → 2020-03-27 | Outpatient (CLI) | payer MEDICARE, OTHER ==
--- NOTE | 2020-03-27 15:23 | Diagnostic Imaging Report ---
INDICATION: Postmenopausal screening COMPARISON: Baseline FINDINGS: AP Spine L1-L4: [BMD (g/cm2): 1.188] [T-Score: -0.1] [Z-Score: 1.4] [BMD Previous: na] [BMD % Change: na] LT Hip Neck: [BMD (g/cm2): 1.029] [T-Score: -0.1] [Z-Score: 1.4] LT Hip Total: [BMD (g/cm2):1.055] [T-Score:0.4] [Z-Score: 1.6] [BMD Previous: na] [BMD % Change: na] RT Hip Neck: [BMD (g/cm2):1.019] [T-Score:-0.1] [Z-Score:1.4] RT Hip Total: [BMD (g/cm2):1.071] [T-score:0.5] [Z-Score:1.7] [BMD Previous:na] [BMD % Change:na] *Indicates significant change from prior examination based on 95% confidence level. World Health Organization criteria for BMD interpretation classify patients as Normal (T-score at or above -1.0), Osteopenic (T-score between -1.0 and -2.5) or Osteoporotic (T-score at or below -2.5). LIMITATIONS AND MODIFICATION: None. FRACTURE RISK (FRAX SCORE): The ten year probability of (%): Major Osteoporotic Fracture: [na] Hip Fracture: [na] IMPRESSION: 1. Normal bone mineral density. 2. Baseline examination. 3. See below National Osteoporosis Foundation guidelines on when to potentially initiate pharmacologic therapy. Based on the National Osteoporosis Foundation Guidelines, pharmacologic treatment should be initiated in any of the following, unless clinical conditions suggest otherwise: * Any patient with prior fragility fracture of the hip or vertebrae. A spine fracture indicates 5X risk for subsequent spine fracture and 2X risk for subsequent hip fracture. * Osteoporosis (T-score <-2.5). * Postmenopausal women and men age 50 and older with low bone mass/osteopenia (T-score between -1.0 and -2.5) by DXA and 10-year major osteoporotic fracture greater than 20% or a 10-year probability of hip fracture greater than 3%. These fracture risks are supplied above in the FRAX score, if applicable. * Clinician judgement and/or patient preferences may indicate treatment for people with 10-year fracture probabilities above or below these levels. Dictated by: Dictated on workstation # [id number]
== END ==
LOC: RAD 11:59
PROVIDERS: ATTEND Family Medicine
DX: M85.852 Other specified disorders of bone density and structure, left thigh (principal); M85.851 Other specified disorders of bone density and structure, right thigh
CPT/HCPCS: 77080